=== PATIENT | female | born 1970 | race Caucasian/White ===

== ENCOUNTER 2024-10-08 13:14 | Outpatient (REF) | payer BC, SELFPAY ==
[2024-10-08 23:41] LABS: Campylobacter PCR Negative (Negative); Salmonella PCR Negative (Negative); Shiga Toxin PCR Negative (Negative); Shigella/Enteroinvasive Ecoli Negative (Negative)
[2024-10-10 19:00] LABS: Pancreatic Elastase, F >500 mcg/g
[2024-10-15 14:56] LABS: Giardia Ag, F Negative (Negative)
[2024-10-16 14:55] LABS: Giardia Ag, F Negative (Negative)
== END 2024-10-08 13:15 | disposition home or self-care (01) ==
LOC: LBN 13:14
PROVIDERS: PCP Family Medicine; Visit Provider Internal Medicine Gastroenterology
DX: R19.7 Diarrhea, unspecified (principal); R19.4 Change in bowel habit; K92.2 Gastrointestinal hemorrhage, unspecified
CPT/HCPCS: 87329; 87505; 82656; 82710; 87177